=== PATIENT | female | born 1955 | race African-American/Black ===

== ENCOUNTER 2017-10-04 12:22 | Inpatient (IN) | payer OTHER ==
[~2017-10-04] VITALS: Ht 170.2 cm; Wt 63.5 kg
[2017-10-04 12:42] VITALS: Ht 170.2 cm; Wt 63.5 kg
[2017-10-04 13:27] LABS: BASOPHIL % 0.7 % (0-2); PLATELET COUNT 197 x10^3mcL (130-400); RED CELL DISTRIBUTION WIDTH 12.8 % (11.5-14.5)
[2017-10-04 13:56] LABS: CALCIUM 9.2 mg/dL (8.5-10.1); CARBON DIOXIDE 20.8 mmol/L (21-32); POTASSIUM SERUM 3.4 mmol/L (3.5-5.1)
[2017-10-04 14:01] LABS: ALBUMIN 3.7 g/dL (3.4-5.0); BILIRUBIN TOTAL 0.5 mg/dL (0.20-1.00); TOTAL PROTEIN, SERUM 7.5 g/dL (6.4-8.2)
[2017-10-04 14:53] LABS: AMPHETAMINE QUAL UR NONE DETECTED (NEG <=1000)
[2017-10-04] MEDS ORDERED: [UNRECOGNIZED DRUG - OTHER] PO (15:35)
[2017-10-04] MEDS ORDERED: NITROGLYCERIN0.6 MG SL (15:35)
[2017-10-04] MEDS ORDERED: LEVO-T125 MCG PO (15:36)
[2017-10-04] MEDS ORDERED: NOR5 PO (15:36)
[2017-10-04] MEDS ORDERED: SYMBICORT1 AE3 IH (15:36)
[2017-10-04] MEDS ORDERED: BACLOFEN20 MG PO (15:37)
[2017-10-04] MEDS ORDERED: PROVENTIL0.09 MG/A1 (15:37)
[2017-10-04] MEDS ORDERED: ZYRTEC10 MG PO (15:38)
[2017-10-04] MEDS ORDERED: CARAFATE1 GM PO (15:38)
[2017-10-04] MEDS ORDERED: ASPIR 8181 MG PO (15:38)
[2017-10-04] MEDS ORDERED: IBUPROFEN400 MG PO (15:39)
[2017-10-04] MEDS ORDERED: DILAUDID4 MG PO (15:39)
[2017-10-04] MEDS ORDERED: LORAZEPAM0.5 MG PO (15:39)
[2017-10-04] MEDS ORDERED: MULTIVITAMIN1 SGL PO (15:40)
[2017-10-04] MEDS ORDERED: MASON NATURAL O1 SGL PO (15:40)
[2017-10-04] MEDS ORDERED: VITAMIN D32000 I2 PO (15:41)
[2017-10-04] MEDS ORDERED: FLAX SEED OIL1000 MG PO (15:42)
[2017-10-04 15:52] LABS: microscopic required? NO
[2017-10-04 16:08] LABS: MAGNESIUM 2.1 mg/dL (1.8-2.4); PHOSPHOROUS 2.9 mg/dL (2.5-4.9)
[2017-10-04 16:18] LABS: FREE T4 1.48 ng/dL (0.76-1.46); FREE THYROXINE INDEX 3.7 ug/dL (1.4-4.5); T4(THYROXINE) 10.7 ug/dL (4.7-13.3)
[2017-10-04 16:19] LABS: T3 TOTAL 0.8 ng/mL
[2017-10-04 16:24] LABS: urine erythrocyte NEGATIVE (NEGATIVE)
[2017-10-04] MEDS ORDERED: KEPPRA500 MG (16:30)
[2017-10-04 18:36] VITALS: BP 168/86
[2017-10-04 20:03] VITALS: BP 133/83
[2017-10-05 05:36] VITALS: BP 140/81
[2017-10-05 18:10] VITALS: BP 112/65
[2017-10-05] MEDS ORDERED: HYDROMORPHONE HC8 MG PO (18:38)
[2017-10-05] MEDS ORDERED: PROPRANOLOL HCL40 MG PO (20:50)
[2017-10-05 22:47] VITALS: BP 105/61
[2017-10-06 05:49] VITALS: BP 104/57
[2017-10-06 07:52] LABS: BASOPHIL % 0.8 % (0-2); PLATELET COUNT 188 x10^3mcL (130-400); RED CELL DISTRIBUTION WIDTH 12.8 % (11.5-14.5)
[2017-10-06 08:17] LABS: CARBON DIOXIDE 27.1 mmol/L (21-32); POTASSIUM SERUM 3.7 mmol/L (3.5-5.1)
[2017-10-06] MEDS ORDERED: NITROGLYCERIN0.6 MG SL (09:16)
[2017-10-06 09:37] VITALS: BP 129/71
[2017-10-06 15:56] VITALS: BP 131/75
[2017-10-06 20:38] VITALS: BP 129/71
[2017-10-07 05:58] VITALS: BP 94/66
[2017-10-07 07:29] LABS: BASOPHIL % 0.9 % (0-2); PLATELET COUNT 204 x10^3mcL (130-400)
[2017-10-07 07:39] LABS: CALCIUM 8.8 mg/dL (8.5-10.1); CARBON DIOXIDE 28.7 mmol/L (21-32); CHLORIDE SERUM 104 mmol/L (98-107); CREATININE SERUM 0.9 mg/dL (0.6-1.0); GFR1 > 60 mL/min; GLUCOSE SERUM 101 mg/dL (74-106); SODIUM SERUM 140 mmol/L (136-145)
[2017-10-07] MEDS ORDERED: QUETIAPINE FUMA25 M1 PO (08:56)
[2017-10-07 09:18] VITALS: BP 109/85
[2017-10-07 12:43] VITALS: BP 123/66
[2017-10-07 14:14] VITALS: BP 123/66
== END 2017-10-07 16:15 | disposition home or self-care (01) | DRG 101 ==
LOC: ED 12:22 → MU 15:52 → DU 15:52 → MU 10-05 10:51
PROVIDERS: Family Medicine; Specialist
DX: G40.409 Other generalized epilepsy and epileptic syndromes, not intractable, without status epilepticus (principal); E87.1 Hypo-osmolality and hyponatremia; M35.2 Behcet's disease; I16.0 Hypertensive urgency; M32.9 Systemic lupus erythematosus, unspecified; F22 Delusional disorders; E87.6 Hypokalemia; J44.9 Chronic obstructive pulmonary disease, unspecified; R73.03 Prediabetes; F41.9 Anxiety disorder, unspecified; Z60.2 Problems related to living alone; Z88.0 Allergy status to penicillin; Z88.2 Allergy status to sulfonamides; Z88.8 Allergy status to other drugs, medicaments and biological substances; Z88.6 Allergy status to analgesic agent; Z88.1 Allergy status to other antibiotic agents; Z91.040 Latex allergy status; Z90.710 Acquired absence of both cervix and uterus; Z68.21 Body mass index [BMI] 21.0-21.9, adult; Z91.14 Patient's other noncompliance with medication regimen
CPT/HCPCS: 84439; 94150; G0480; J1885; J1953; J3486; J3490; J7030; J7620

== ENCOUNTER 2017-10-12 11:53 | Inpatient (IN) | payer OTHER ==
[~2017-10-12] VITALS: Ht 170.2 cm; Wt 63.5 kg
[~2017-10-12 11:53] MED LIST: ASPIR 8181 MG PO; BACLOFEN20 MG PO; CARAFATE1 GM PO; DILAUDID4 MG PO; FLAX SEED OIL1000 MG PO; HYDROMORPHONE HC8 MG PO; IBUPROFEN400 MG PO; KEPPRA500 MG; LEVO-T125 MCG PO; LORAZEPAM0.5 MG PO; MASON NATURAL O1 SGL PO; MULTIVITAMIN1 SGL PO; NITROGLYCERIN0.6 MG SL; NOR5 PO; PROPRANOLOL HCL40 MG PO; PROVENTIL0.09 MG/A1; QUETIAPINE FUMA25 M1 PO; SYMBICORT1 AE3 IH; VITAMIN D32000 I2 PO; ZYRTEC10 MG PO; [UNRECOGNIZED DRUG - OTHER] PO
[2017-10-12 12:06] VITALS: Ht 170.2 cm; Wt 63.5 kg
[2017-10-12 12:22] LABS: CARBON DIOXIDE 27.3 mmol/L (21-32); CHLORIDE SERUM 104 mmol/L (98-107); CREATININE SERUM 0.9 mg/dL (0.6-1.0); GFR1 > 60 mL/min; GLUCOSE SERUM 125 mg/dL (74-106); POTASSIUM SERUM 3.8 mmol/L (3.5-5.1); SODIUM SERUM 141 mmol/L (136-145)
[2017-10-12 12:26] LABS: ALKALINE PHOSPHATASE 82 U/L (46-116); ALT/SGPT 33 U/L (14-59); AST/SGOT 24 U/L (15-37); BILIRUBIN TOTAL 0.3 mg/dL (0.20-1.00); TOTAL PROTEIN, SERUM 7.1 g/dL (6.4-8.2)
[2017-10-12 12:27] LABS: ALBUMIN 3.2 g/dL (3.4-5.0)
[2017-10-12 12:54] LABS: BASOPHIL % 0.2 % (0-2); PLATELET COUNT 259 x10^3mcL (130-400); RED CELL DISTRIBUTION WIDTH 13.1 % (11.5-14.5)
[2017-10-12] MEDS ORDERED: SYNTHROID0.075 MG PO (16:09)
[2017-10-12] MEDS ORDERED: CARAFATE1 GM PO (16:10)
[2017-10-12] MEDS ORDERED: ZYPREXA10 M1 PO (16:11)
[2017-10-12 17:28] LABS: MAGNESIUM 2.4 mg/dL (1.8-2.4); PHOSPHOROUS 3.2 mg/dL (2.5-4.9)
[2017-10-12 17:29] LABS: CHOLESTEROL/HDL RATIO 3.9
[2017-10-12 17:32] LABS: T3 TOTAL 0.87 ng/mL
[2017-10-12 17:34] LABS: FREE T4 1.21 ng/dL (0.76-1.46); FREE THYROXINE INDEX 2.7 ug/dL (1.4-4.5); T4(THYROXINE) 8.3 ug/dL (4.7-13.3)
[2017-10-12 21:43] LABS: UA SPECIFIC GRAVITY 1.015 (1.005-1.035); microscopic required? YES; urine erythrocyte NEGATIVE (NEGATIVE)
[2017-10-12 21:50] LABS: AMPHETAMINE QUAL UR NONE DETECTED (NEG <=1000)
[2017-10-13 03:54] VITALS: BP 150/99
[2017-10-13 11:34] VITALS: BP 151/84
[2017-10-13] MEDS ORDERED: LEV500 PO (14:11)
[2017-10-13 16:27] VITALS: BP 151/84
== END 2017-10-13 17:45 | DRG 205 ==
LOC: ED 11:53 → DU 15:49
PROVIDERS: Emergency Medicine; Family Medicine Sports Medicine
DX: M94.0 Chondrocostal junction syndrome [Tietze] (principal); N17.0 Acute kidney failure with tubular necrosis; F32.3 Major depressive disorder, single episode, severe with psychotic features; N39.0 Urinary tract infection, site not specified; M35.2 Behcet's disease; I11.0 Hypertensive heart disease with heart failure; R73.03 Prediabetes; E06.3 Autoimmune thyroiditis; G40.909 Epilepsy, unspecified, not intractable, without status epilepticus; I50.9 Heart failure, unspecified; E03.9 Hypothyroidism, unspecified; M79.7 Fibromyalgia; Z60.2 Problems related to living alone; Z88.0 Allergy status to penicillin; Z88.2 Allergy status to sulfonamides; Z88.1 Allergy status to other antibiotic agents; Z91.040 Latex allergy status; Z88.8 Allergy status to other drugs, medicaments and biological substances; Z79.899 Other long term (current) drug therapy; Z91.19 Patient's noncompliance with other medical treatment and regimen
CPT/HCPCS: 83880; 84439; J3490; J7030; Q0092